=== PATIENT | male | born 1965 | race African-American/Black ===

== ENCOUNTER 2019-12-21 16:26 | Inpatient (IN) | payer OTHER, MEDICAID ==
[~2019-12-21] VITALS: Ht 175.3 cm; Wt 73.5 kg
[2019-12-21 16:26] VITALS: BP 144/91
[2019-12-21 16:48] LABS: ABSOLUTE NEUTROPHILS 2.1 thou/uL (1.4-8.2); BASOPHILS 0.9 % (0.0-2.0); EOSINOPHILS 0.5 % (0.0-3.0); HEMATOCRIT 35.5 % (42.0-52.0); HEMOGLOBIN 12.4 gm/dL (14.0-18.0); LYMPHOCYTES 38.1 % (24.0-44.0); MCH 37.2 pg (26.0-34.0); MCHC 34.9 g/dL (28.0-37.0); MCV 106.4 fL (80.0-100.0); MONOCYTES 11.4 % (1.0-8.0); PLATELET COUNT 137 thou/uL (150-400); POLYS 49.1 % (36.0-66.0); RBC 3.34 mil/uL (4.50-6.00); RDW 14.3 % (10.5-14.5); WBC 4.3 thou/uL (4.0-11.0)
[2019-12-21 16:55] LABS: ANION GAP 15 mmol/L (7-16); BUN 9 mg/dL (7-18); CALCIUM 8.3 mg/dL (8.5-10.1); CHLORIDE 92 mmol/L (98-107); CO2 19 mmol/L (21-32); CREATININE 1.3 mg/dL (0.7-1.3); GLUCOSE 89 mg/dL (74-106); POTASSIUM 3.7 mmol/L (3.5-5.1); SODIUM 126 mmol/L (136-145)
[2019-12-21 17:06] LABS: ALBUMIN 3.4 g/dL (3.4-5.0); SGOT 117 U/L (15-37); SGPT 72 U/L (30-65); TOTAL BILIRUBIN 0.6 mg/dL (0.2-1.0); TOTAL PROTEIN 7.5 g/dL (6.4-8.2); TROPONIN-I <0.06 ng/mL (<0.06)
--- NOTE | 2019-12-21 17:29 | NUR ---
DAMEON'S ADDRESS: [address] [place] [address] [address], [place] [address] PHONE NUMBER: [phone] EMPLOYER: [employer] CONTACT RUTH (MOM): [phone] HUAN (DAD): [phone]
[2019-12-21 18:13] LABS: URINE BILIRUBIN NEGATIVE (Negative); URINE BLOOD TRACE (Negative); URINE CLARITY CLEAR; URINE COLOR YELLOW; URINE GLUCOSE-RANDOM* NEGATIVE (Negative); URINE KETONES TRACE (Negative); URINE LEUKOCYTES-REFLEX NEGATIVE (Negative); URINE NITRITE-REFLEX NEGATIVE (Negative); URINE PROTEIN (DIPSTICK) NEGATIVE (Negative); URINE UROBILINOGEN 0.2 E.U./dl (0.2-1.0)
[2019-12-21 18:20] LABS: AMP/METHAMP Negative (Negative); BARBITURATES Negative (Negative); BENZODIAZEPINES Negative (Negative); COCAINE Negative (Negative); METHADONE Negative (Negative); OPIATES Negative (Negative); PCP Negative (Negative)
[2019-12-21 20:11] VITALS: BP 167/106
--- NOTE | 2019-12-21 20:13 | NUR ---
[facility] DANIELLA GARCIA: [phone]
[2019-12-21 20:14] VITALS: BP 143/87
[2019-12-22] MEDS ORDERED: LATUDA120 MG PO (02:08)
[2019-12-22] MEDS ORDERED: CYMBALTA20 MG PO (02:09)
[2019-12-22] MEDS ORDERED: SEROQUEL 50 MG50 M1 PO (02:10)
--- NOTE | 2019-12-22 03:36 | NUR ---
PT ADMITED FROM ED AT [facility]. A&O X4 FORGETFUL. DENIES PAIN. SBA WITH TRANSFER. PT HAS HX PSYCH DIAGNOSIS STATED TAKES LATUNDA, CYMBALTA, AND SEROQUEL, BUT STATED HAS NOT TAKEN LATUNDA AND CYMBALTA FOR SEVERAL MONTHS (LAST WAS BEFORE COVID STARTED). HE ALSO STATED DID NOT KNOWN HIS DOSAGE FOR CYMBALTA THAT HE TAKES. HE HAS BEEN TAKING SEROQUEL PRN AT HS.
[2019-12-22 04:00] VITALS: BP 138/77
--- NOTE | 2019-12-22 06:33 | NUR ---
PT ON SEIZURE PRECAUTIONS
--- NOTE | 2019-12-22 08:49 | EKG ---
[facility] [place] [address] ELECTROCARDIOGRAM REPORT Name: DAMEON GARCIA Room #: 352- ADM IN M.R.#: [id number] Admission: 12/21/19 Attend Phys: Chi Slaughter MD Discharge: Date of : 61 Report #: [id number] THIS REPORT FOR: cc: TAPAN - No family physician/PCP FAM - No family physician/PCP Jose Corea MD [facility] THIS REPORT FOR: //name// [facility] ED Test Date: 2019-12-21 Test Time: 16:39:13 Pat Name: DAMEON GARCIA Department: Room: [facility] Gender: M Soup Mixer: : 1965 Requested By: Saji Verma Order Number: [id number] MD: Jose Corea Measurements Intervals [place] Rate: 109 P: 57 MN: 162 QRS: 36 QRSD: 78 T: 46 QT: 331 QTc: 446 Interpretive Statements Sinus tachycardia No significant abnormality No previous ECG available for comparison Electronically Signed On 12-22-2019 8:49:25 CDT by Jose Corea [email or web address] <ELECTRONICALLY SIGNED> By: Jose Corea MD, [facility] 12/22/19 0849 [id number] 163 Jose Corea MD, [facility] /EPI
[2019-12-22 10:28] VITALS: BP 93/56
--- NOTE | 2019-12-22 13:09 | NUR ---
PT AOX3 FORGETFUL ABOUT RECENT EVENTS THAT HAVE BROUGHT HIM TO HOSPITAL. VITALS STABLE. AFEBRILE. BREATHING COMFORTABLY ON ROOM AIR. UP W/ SBA. IMPULSIVE AT TIMES. NO SIGNS OF SEIZURE ACTIVITY. NEURO AND PSYCH CONSULT PENDING. FIRST COVID TEST NEGATIVE - HOSPITALIST NOTIFIED. WCM.
--- NOTE | 2019-12-22 13:29 | NUR ---
INITIAL ASSESSMENT: WILTON reviewed chart and spoke with nursing and attending physician. Pt was admitted due to syncopal episode. Pt placed in Enhanced Isolation to r/o COVID-19. First test is negative. Pt is afebrile and not requiring O2. Seizure precations in place. Neuro and psych consults ordered. WILTON placed call into pt's room. No answer. WILTON left voice message on pt's cell phone: [phone]. Awaiting call back at this time. WILTON is following to assist as needed with discharge planning.
[2019-12-22 15:15] VITALS: BP 124/86
[2019-12-22 19:25] VITALS: BP 124/86; BP 133/84
[2019-12-23 03:45] VITALS: BP 150/94
--- NOTE | 2019-12-23 05:35 | NUR ---
PT MAKKING PROGRESS TOWARDS GOALS. DENIES ANY SOA WHILE UP TO THE TOILET OR AT REST. STATES HE IS HOPING TO GO HOME TODAY. SEE CHARTING.
[2019-12-23 06:30] LABS: HEMATOCRIT 32.5 % (42.0-52.0); HEMOGLOBIN 11.3 gm/dL (14.0-18.0); MCH 37.4 pg (26.0-34.0); MCHC 34.7 g/dL (28.0-37.0); MCV 107.7 fL (80.0-100.0); RBC 3.02 mil/uL (4.50-6.00); RDW 14.9 % (10.5-14.5); WBC 3.9 thou/uL (4.0-11.0)
[2019-12-23 07:02] LABS: ALBUMIN 2.8 g/dL (3.4-5.0); CALCIUM 8.1 mg/dL (8.5-10.1); MAGNESIUM 1.7 mg/dL (1.8-2.4); POTASSIUM 3.4 mmol/L (3.5-5.1); TOTAL BILIRUBIN 0.7 mg/dL (0.2-1.0); TOTAL PROTEIN 6.3 g/dL (6.4-8.2)
--- NOTE | 2019-12-23 08:59 | NUR ---
ATTEMPTED COGNITIVE-LINGUISTIC EVALUATION. PATIENT REFUSED TO PARTICIPATE.
[2019-12-23 09:30] VITALS: BP 113/78
--- NOTE | 2019-12-23 11:21 | NUR ---
ASSUMED CARE APPROX 0700. PT ALERT AND ORIENTED X4. ASSESSMENT CHARTED AND VSS. PT LAYING IN BED. PT AFEBRILE. DENIES ACUTE PAIN. ON ROOM AIR W/ NO SIGNS OF DISTRESS NOTED. PT DENIES CONCERNS AT THIS TIME. WILL CONTINUE TO MONITOR.
[2019-12-23 12:47] VITALS: BP 152/90
[2019-12-23 17:14] VITALS: BP 138/86
[2019-12-23 19:10] VITALS: BP 133/70
--- NOTE | 2019-12-24 01:57 | NUR ---
PATIENT ASSESSED AND IS ALERT X 4. SKIN WARM AND DRY. RESP EVEN AND UNLABORED. COUGHING AT TIMES WITH A DRY COUGH. TELE- SHOWS NSR. UP WALKING TO BATHROOM WITHOUT PROBLEMS. ON ROOM AIR. RIGHT AC IV INTACT WITH SITE HEALTHY. LUNGS WHEEZING AT TIMES. VOID IN BATHROOM AND URINAL. HEART HEALTHY DIET. NO CONPLAINTS NOTED. REMAINS COVID NEGATIVE. NO FEVER NOTED. VS STABLE. CONT PLAN OF CARE.
--- NOTE | 2019-12-24 02:00 | NUR ---
PATIENT WILL BE TRANSFERING TO ROOM 201. REPORET GIVEN TO NURSE ON 2N. DENIES ANY NEEDS.
--- NOTE | 2019-12-24 02:28 | NUR ---
PATIENT TRANSFERED TO ROOM 201 AND REPORT GIVEN TO NIGHT RN. DENIES ANY PAIN. WENT PER W/C AND IV POLE.
[2019-12-24 02:54] VITALS: BP 169/100
--- NOTE | 2019-12-24 02:59 | NUR ---
PATIENT ARRIVED TO ROOM 201 VIA WHEELCHAIR AT 0235 WITH SENIOR SQL SERVER DBA. ALERT AND ORIENTED X4. NEEDS REDIRECTION AT TIMES, COOPERATIVE. IVF INFUSING PER ORDER. ONETIME MAGNESIUM IVPB HUNG BY THIS NURSE. UP ADLIB TO BATHROOM. PATIENT IS IMPULSIVE. NEXT CWAL IS 0800 AND EVERY EIGHT HOURS THEREAFTER. TELE-NSR. NEGATIVE COVID PER REPORT FROM 3W NURSE BRIAN. DENIES PAIN. WILL MONITOR.
[2019-12-24 03:55] VITALS: BP 145/80
[2019-12-24 08:42] VITALS: BP 146/100
[2019-12-24 11:10] LABS: ABSOLUTE NEUTROPHILS 2.1 thou/uL (1.4-8.2); EOSINOPHILS 0.8 % (0.0-3.0); HEMATOCRIT 35.6 % (42.0-52.0); HEMOGLOBIN 12.3 gm/dL (14.0-18.0); LYMPHOCYTES 34.6 % (24.0-44.0); MCHC 34.6 g/dL (28.0-37.0); MCV 106.9 fL (80.0-100.0); PLATELET COUNT 138 thou/uL (150-400); POLYS 52.6 % (36.0-66.0); RBC 3.33 mil/uL (4.50-6.00); RDW 14.4 % (10.5-14.5)
[2019-12-24 11:27] LABS: ANION GAP 6 mmol/L (7-16); BUN 8 mg/dL (7-18); CALCIUM 8.4 mg/dL (8.5-10.1); CHLORIDE 104 mmol/L (98-107); CHOLESTEROL 209 mg/dL (<200); CO2 26 mmol/L (21-32); GLUCOSE 103 mg/dL (74-106); HDL CHOLESTEROL 76 mg/dL (>40); LDL CHOLESTEROL 109 mg/dL (<100); LIPASE 160 U/L (73-393); MAGNESIUM 2.1 mg/dL (1.8-2.4); PHOSPHORUS 2.8 mg/dL (2.5-4.9); POTASSIUM 4.3 mmol/L (3.5-5.1); SODIUM 136 mmol/L (136-145); TC:HDL 2.8 Ratio (Not establshd); TRIGLYCERIDE 120 mg/dL (<150); VLDL 24 mg/dL (<40)
[2019-12-24 11:34] VITALS: BP 153/99
[2019-12-24 11:52] LABS: FOLIC ACID 16.2 ng/mL (8.6-58.9)
[2019-12-24 12:24] LABS: ANISOCYTOSIS 2+; MACROCYTES 2+; PLATELET ESTIMATE NORMAL
--- NOTE | 2019-12-24 15:32 | HC ---
[facility] [place] [address] CONSULTATION Name: DAMEON GARCIA Room #: 201-P ADM IN M.R.#: [id number] Admission: 12/21/19 Attend Phys: Chi Slaughter MD Discharge: Date of : 61 Report #: [id number] THIS REPORT FOR: cc: FAM - No family physician/PCP FAM - No family physician/PCP Jose De Jesus Ramirez MD ~ CC: [facility] physician/PCP Chi Slaughter MD DATE OF SERVICE: 12/24/2019 HISTORY OF PRESENT ILLNESS: The patient is a 54-year-old male who was admitted on 12/20 after a syncopal episode at work. The patient was confused on arrival into the Emergency Room. He does have a history of daily alcohol abuse. He underwent a CT scan of his head initially, which was normal. A CTA of his chest PE protocol was performed, which was negative; however, there was a 7 mm enhancing nodule or calcified nodule in the gallbladder. He then therefore underwent an ultrasound of the abdomen today and this shows a 9 x 7 mm echogenic mass within the gallbladder, which is nonmobile and non-shadowing. This may represent a large gallbladder polyp or noncalcified gallstone. The patient denies any abdominal pain. He denies any nausea or vomiting. He is feeling better at this time. He has been watching for possibility of alcohol withdrawal. He also has been evaluated by Neurology for possible seizure. He denies any reflux, nausea, vomiting, no dysphagia. He states his bowel movements have been normal. He believes his last colonoscopy was approximately 5 years ago. He is unsure if he has had polyps in the past. ALLERGIES: PENICILLIN. REVIEW OF SYSTEMS: As per HPI. PAST MEDICAL HISTORY: Alcohol abuse, paranoid schizophrenia, previous history of leukemia, DVT, PE, remote history of substance abuse. FAMILY HISTORY: Negative for colon cancer. SOCIAL HISTORY: Reportedly drinks daily a 6-pack beer or more. Also, smokes on a daily basis. PHYSICAL EXAMINATION: VITAL SIGNS: Temperature is 97.7, pulse 81, blood pressure is 153/99, respiratory rate is 17. GENERAL: He is alert and oriented x 3, in no acute distress. HEENT: Sclerae nonicteric. Oropharynx clear. NECK: Supple, without lymphadenopathy. [facility] [address] [place] [address] CONSULTATION Name: DAMEON GARCIA Room #: 201-P [facility] IN M.R.#: [id number] Admission: 12/21/19 Attend Phys: Chi Slaughter MD Discharge: Date of : 61 Report #: [id number] CARDIOVASCULAR: Regular rate and rhythm. CHEST: Clear to auscultation bilaterally. ABDOMEN: Soft, nontender, nondistended, normoactive bowel sounds. EXTREMITIES: No cyanosis, clubbing or edema. LABORATORY DATA: Sodium 136, potassium 4.3, chloride 104, bicarbonate 26, BUN 8, creatinine 1.0, lipase 160, AST 54, total bilirubin 0.7, calcium 8.4, phosphorus 2.8, magnesium 2.1, alkaline phosphatase 77, ALT is 50, total protein 6.8, albumin 2.8. Cholesterol 209. INR 1.0. WBC is 4.0, hemoglobin 12.3, MCV 106.9, platelet count is 138. Viral hepatitis panel is pending at this time. Ultrasound of the liver was normal. No evidence of ductal dilation. Common bile duct was 4-5 mm in size, which was normal. Again, the gallbladder polyp versus stone was seen as described above. ASSESSMENT AND PLAN: 1. Likely gallbladder polyp, although stone is possible, size is 6-9 mm. In general, polyps of this size in the gallbladder have low risk for malignancy. Would, however, repeat ultrasound in 6 months. If there is no change in size, could continue to monitor, especially as the patient is asymptomatic at this time. If, however, there is an increase in size that would be an indication to consider laparoscopic cholecystectomy in the future. 2. Elevated liver function tests, suspect secondary to alcohol abuse. He has a mild elevation in his AST. His viral panel is pending at this time. Liver and bile ducts were normal on ultrasound. Thank you for allowing me to participate in his care. <ELECTRONICALLY SIGNED> By: Jose De Jesus Ramirez MD 12/24/19 1532 [id number] [id number] Jose De Jesus Ramirez MD /nt
[2019-12-24 16:32] VITALS: BP 144/99
--- NOTE | 2019-12-24 19:22 | NUR ---
ASSUMED CARE OF PT AT SHIFT CHANGE. ASSESSMENTS CHARTED. MEDS GIVEN PER JUL. PT A&OX4. NO C/O PAIN OR SOA. PT HAS SHOWN IMPULSIVITY. PLAN TO GO HOME TOMORROW. WILL CONTINUE TO MONITOR AND FOLLOW POC.
[2019-12-24 20:15] VITALS: BP 162/98
--- NOTE | 2019-12-24 22:15 | NUR ---
TOOK OVER CARE AT 1900 ASSESSMENTS CHARTED, MEDS GIVEN CHARTED. PATIENT UP AT LILY IN ROOM. DENIES PAIN. DENIES RESPIRATORY DISTRESS. PLAN OF CARE TO GO HOME IN AM.
[2019-12-25 05:40] VITALS: BP 145/93
[2019-12-25] MEDS ORDERED: KEPPRA 500 MG500 MG PO (07:16)
[2019-12-25] MEDS ORDERED: VITAMIN B-1100 M2 PO (07:18)
[2019-12-25] MEDS ORDERED: PEPCID20 MG PO (07:18)
--- NOTE | 2019-12-25 08:02 | EKG ---
[facility] [place] [address] ELECTROCARDIOGRAM REPORT Name: DAMEON GARCIA Room #: 201-P ADM IN M.R.#: [id number] Admission: 12/21/19 Attend Phys: Chi Slaughter MD Discharge: Date of : 61 Report #: [id number] THIS REPORT FOR: cc: TAPAN - Joanna family physician/PCP TAPAN - Joanna family physician/PCP Jose Corea MD [facility] THIS REPORT FOR: //name// [facility] Test Date: 2019-12-24 Test Time: 11:20:49 Pat Name: DAMEON GARCIA Department: Room: 201 P Gender: M International Trade Manager: [facility] : 1965 Requested By: Betsey Richter Order Number: [id number] MD: Jose Corea Measurements Intervals [place] Rate: 72 P: 60 AK: 159 QRS: 50 QRSD: 79 T: 41 QT: 390 QTc: 427 Interpretive Statements Sinus rhythm No significant abnormality Compared to ECG 12/21/2019 16:39:13 Sinus tachycardia no longer present Electronically Signed On 12-25-2019 8:02:13 CDT by Jose Corea [email or web address] <ELECTRONICALLY SIGNED> By: Jose Corea MD, [facility] 12/25/19 0802 1120 1120 Jose Corea MD, [facility] /EPI
--- NOTE | 2019-12-25 09:57 | 2DMMODE ---
[facility] [address] [place] [address] 2 D/M-MODE ECHOCARDIOGRAM Name: DAMEON GARCIA Room #: 201-P ADM IN M.R.#: [id number] Admission: 12/21/19 Attend Phys: Chi Slaughter MD Discharge: Date of : 61 Report #: [id number] THIS REPORT FOR: cc: TAPAN - No family physician/PCP FAM - No family physician/PCP Jose Corea MD [facility] ~ APPROVED REPORT Study performed: 12/25/2019 08:37:59 EXAM: Comprehensive 2D, Doppler, and color-flow Echocardiogram Patient Location: Bedside Room #: 201 Status: routine BSA: 1.89 HR: 88 bpm BP: 145/93 mmHg Rhythm: NSR Other Information Study Quality: Good Indications Syncope 2D Dimensions IVSd: 10.27 (7-11mm) LVOT Diam: 22.93 (18-24mm) LVDd: 42.29 mm PWd: 10.24 (7-11mm) Ascending Ao: 33.51 (22-36mm) LVDs: 28.30 (25-40mm) Aortic Root: 32.20 mm IVC: 13.00 mm Volumes Left Atrial Volume (Systole) Single Plane 4CH: 44.21 mL Single Plane 2CH: 29.50 mL LA ESV Index: 20.00 mL/m2 Aortic Valve AoV Peak Brent.: 1.15 m/s AO Peak Gr.: 5.30 mmHg LVOT Max P.27 mmHg LVOT Max V: 1.03 m/s ARMAND Vmax: 3.71 cm2 Mitral Valve [facility] [address] [place] [address] 2 D/M-MODE ECHOCARDIOGRAM Name: JOSEDAMEON Room #: 201-P [facility] IN M.Nasreen.#: [id number] Admission: 12/21/19 Attend Phys: Chi Slaughter MD Discharge: Date of : 61 Report #: [id number] E/A Ratio: 0.7 MV Decel. Time: 279.24 ms MV E Max Brent.: 0.73 m/s MV A Brent.: 1.00 m/s MV PHT: 80.98 ms IVRT: 138.41 ms Pulmonary Valve PV Peak Brent.: 0.89 m/s PV Peak Gr.: 3.14 mmHg Pulmonary Vein P Vein S: 0.51 m/s P Vein A: 0.23 m/s P Vein D: 0.34 m/s P Vein A Dur.: 83.0 msec P Vein S/D Ratio: 1.50 Tricuspid Valve TR Peak Brent.: 2.54 m/s TR Peak Gr.: 25.81 mmHg PA Pressure: 31.00 mmHg Left Ventricle The left ventricle is normal size. There is normal LV segmental wall motion. There is normal left ventricular wall thickness. The left ventricular systolic function is normal. The left ventricular ejection fraction is within the normal range. LVEF is 60-65%. Mild diastolic dysfunction is present (impaired relaxation pattern). Right Ventricle The right ventricle is normal size. The right ventricular systolic function is normal. Atria The left atrium size is normal. The right atrium size is normal. Aortic Valve The aortic valve is normal in structure. No aortic regurgitation is present. There is no aortic valvular stenosis. Mitral Valve The mitral valve is normal in structure. There is no mitral valve regurgitation noted. No evidence of mitral valve stenosis. Tricuspid Valve The tricuspid valve is normal in structure. There is trace tricuspid [facility] [address] [place] [address] 2 D/M-MODE ECHOCARDIOGRAM Name: DAMEON GARCIA Room #: 201-P ADM IN M.R.#: [id number] Admission: 12/21/19 Attend Phys: Chi Slaughter MD Discharge: Date of : 61 Report #: [id number] regurgitation. Estimated PAP 30 mmHg. Pulmonic Valve The pulmonary valve is normal in structure. There is no pulmonic valvular regurgitation. Great Vessels The aortic root is normal in size. IVC is normal in size and collapses >50% with inspiration. Pericardium There is no pericardial effusion. <Conclusion> The left ventricular systolic function is normal. There is normal LV segmental wall motion. LVEF is 60-65%. Mild diastolic dysfunction The aortic valve is normal in structure. No aortic regurgitation or stenosis The mitral valve is normal in structure. No mitral valve regurgitation. There is trace tricuspid regurgitation. Estimated pulmonary artery pressure of 30 mmHg. There is no pericardial effusion. <ELECTRONICALLY SIGNED> By: Jose Corea MD, FACC 12/25/19955 5 5 Jose Corea MD, FAC /INF
--- NOTE | 2019-12-25 11:16 | NUR ---
Dc to home anticipated today. Pt was cleared by therapy this weekend and is up ad gibran in his room and hallway. Off o2. No dc needs anticipated.
--- NOTE | 2019-12-25 13:07 | NUR ---
RECEIVED PT'S CARE AROUND 0735; PT. ON BED; ALERT; DURING AM ASSESMENT PT. AOX4; AM MEDICATIONS GIVEN; NO C/O PAIN; EDUCATED ABOUT FALL PREVENTIONS; [facility]; REFUSED BED ALARM ON; D/C PENDING; PHYSICIAN NOTIFIED OF PT D/C TO HOME; [facility]; NO NEW ORDERS; PT. EDUCATED ABOUT D/C ORDERS; [facility]; D/C ORDERS ON PLACED; ASSESSMENT CHARGED; REFUSED HOME HEALTH; REQUESTED A RIDE; STOGIE PACKER NOTIFIED; WORKING ON D/C WORKERS;
[2019-12-25 13:17] VITALS: BP 145/93
[2019-12-25 17:06] LABS: HAV IgM AB (ANTI-HAV IgM) Negative (Negative); HEPATITIS B SURFACE AG Negative (Negative); HEPATITIS C VIRUS AB <0.1 (0.0-0.9)
== END 2019-12-25 13:59 | disposition home or self-care (01) | DRG 56 ==
LOC: ER 16:26 → 2N 19:18 → EROBS 19:18 → 3W 19:18 → 2N 12-24 02:31
PROVIDERS: Internal Medicine; Physician Assistant; ADMIT Internal Medicine; ATTEND Internal Medicine
DX: G31.2 Degeneration of nervous system due to alcohol (principal); N17.0 Acute kidney failure with tubular necrosis; J96.00 Acute respiratory failure, unspecified whether with hypoxia or hypercapnia; F10.239 Alcohol dependence with withdrawal, unspecified; E87.1 Hypo-osmolality and hyponatremia; G40.509 Epileptic seizures related to external causes, not intractable, without status epilepticus; D61.818 Other pancytopenia; F20.0 Paranoid schizophrenia; Z94.81 Bone marrow transplant status; R74.0 Nonspecific elevation of levels of transaminase and lactic acid dehydrogenase [LDH]; Z20.828 Contact with and (suspected) exposure to other viral communicable diseases; Y90.0 Blood alcohol level of less than 20 mg/100 ml; I10 Essential (primary) hypertension; J43.8 Other emphysema; J94.1 Fibrothorax; E83.42 Hypomagnesemia; E87.6 Hypokalemia; E86.0 Dehydration; K82.4 Cholesterolosis of gallbladder; G40.909 Epilepsy, unspecified, not intractable, without status epilepticus; F17.210 Nicotine dependence, cigarettes, uncomplicated; Z88.0 Allergy status to penicillin; Z91.14 Patient's other noncompliance with medication regimen; Z86.718 Personal history of other venous thrombosis and embolism; Z79.01 Long term (current) use of anticoagulants; Z86.711 Personal history of pulmonary embolism; Z85.6 Personal history of leukemia
CPT/HCPCS: 10081; 10879